=== PATIENT | male | born 1955 | race Caucasian/White ===

== ENCOUNTER 2017-01-18 18:37 | Emergency (ER) | payer BC, OTHER ==
[2017-01-18] MEDS ORDERED: Acyclovir TAB* 400 MG PO ONE (19:28)
[2017-01-18] MEDS ORDERED: HYDROcodone/ACETAMIN 5-325 MG* 1 TAB PO ONE (19:29)
--- NOTE | 2017-01-18 19:29 | UC ---
Skin Complaint HPI - HPI Summary HPI Summary: rash around right side of back and abdomen---area was painful yesterday---today rash appeared - History of Current Complaint Chief Complaint: UCSkin Time Seen by Provider: 01/18/17 19:22 Stated Complaint: RASH (? SHINGLES) Hx Obtained From: Patient Onset/Duration: Sudden Onset, Lasting Days - 1, Still Present Timing: Constant Onset Severity: Moderate Current Severity: Moderate Pain Intensity: 6 Pain Scale Used: 0-10 Numeric Location: Discrete Character: Hives, Redness, Raised Aggravating: Nothing Alleviating: Nothing Associated Signs & Symptoms: Positive: Rash - Allergy/Home Medications Allergies/Adverse Reactions: Allergies Allergy/AdvReac Type Severity Reaction Status Date / Time Ciprofloxacin [From Cipro] Allergy See Comment Verified 01/18/17 19:18 Home Medications: Home Medications Bisoprolol & Hydrochlorothiazi [Ziac 5-6.25 mg-] 1 tab PO DAILY 01/18/17 [ History Confirmed 01/18/17] Ranitidine HCl [Zantac] 150 mg PO DAILY 01/18/17 [History Confirmed 01/18/17] Review of Systems Constitutional: Negative Skin: Rash - for 1 day right side of mid back around dermatone to abdomen Eyes: Negative ENT: Negative Respiratory: Negative Cardiovascular: Negative Gastrointestinal: Negative Genitourinary: Negative Motor: Negative Neurovascular: Negative Musculoskeletal: Negative Neurological: Negative Psychological: Negative All Other Systems Reviewed And Are Negative: Yes PMH/Surg Hx/FS Hx/Imm Hx Previously Healthy: No Endocrine History Of: Denies: Diabetes Cardiovascular History Of: Reports: Cardiac Disorders - Mitral valve prolapse, Hypertension Respiratory History Of: Denies: COPD GI/ History Of: Reports: Ulcer - Gerd - Surgical History Surgical History: Yes Surgery Procedure, Year, and Place: Hernia repair right inguinal, T&A, traumatic amputation of right 3 finger, appy - Family History Known Family History: Positive: None Family History: no known cardiovascular issues in family lineage - Social History Occupation: Employed Full-time Lives: With Family Alcohol Use: None Substance Use Type: Excessive Caffeine Smoking Status (MU): Never Smoked Tobacco Physical Exam Triage Information Reviewed: Yes Appearance: Well-Appearing, No Pain Distress, Well-Nourished Vital Signs: Initial Vital Signs Temp 96.7 F 01/18/17 19:00 Pulse 87 01/18/17 19:00 Resp 16 05/28/17 19:00 BP 155/107 01/18/17 19:00 Pulse Ox 96 01/18/17 19:00 Vital Signs Reviewed: Yes Eye Exam: Normal Eyes: Positive: Conjunctiva Clear ENT Exam: Normal ENT: Positive: Normal ENT inspection, Hearing grossly normal, Pharynx normal. Negative: Nasal congestion, Nasal drainage, Tonsillar swelling, Tonsillar exudate, Trismus, Muffled/hoarse voice Dental Exam: Normal Neck exam: Normal Neck: Positive: Supple, Nontender, No Lymphadenopathy Respiratory Exam: Normal Respiratory: Positive: No respiratory distress, No accessory muscle use, Other: - right chest wall tender Cardiovascular Exam: Normal Cardiovascular: Positive: RRR, Pulses Normal, Brisk Capillary Refill Musculoskeletal Exam: Normal Musculoskeletal: Positive: Strength Intact, ROM Intact, No Edema Neurological Exam: Normal Neurological: Positive: Alert, Muscle Tone Normal Psychological Exam: Normal Skin Exam: Other Skin: Positive: rashes - red raised around right side of mid back to abdomen Course/Dx - Course Course Of Treatment: Acyclovir, pain med, follow with pcp - Differential Diagnoses - Skin Complaint Differential Diagnoses: Urticaria, Varicella Zoster, Viral Exanthem - Diagnoses Provider Diagnoses: Shingles Discharge - Discharge Plan Condition: Stable Disposition: HOME Prescriptions: Acyclovir TAB* [Zovirax TAB*] 800 mg PO 5ID #70 tab Hydrocodone-Acetaminophen [Hydrocodone/Acetaminophen 5-325 mg] 1 tab PO Q6H #10 tab MDD 4 Patient Education Materials: Shingles (ED), Acyclovir (By mouth), DASH Eating Plan (ED), Hypertension (ED) Referrals: [facility] [place] PHYSICIAN REFERRAL [Outside] - 2 Weeks Additional Instructions: Follow Blood Pressure with Primary Care Doctor in 2 weeks
[2017-01-18] MEDS ORDERED: Acyclovir CAP* 200 MG PO ONE (19:41)
== END 2017-01-18 19:59 | disposition home or self-care (01) ==
LOC: UCCORT 18:37
DX: B02.9 Zoster without complications (principal)
CPT/HCPCS: 99202; A9270-GY; G0463